=== PATIENT | male | born 1985 | race Caucasian/White ===

== ENCOUNTER 2018-01-21 06:59 | Day surgery (SDC) | payer MEDICAID, OTHER ==
[~2018-01-21] VITALS: Ht 180.3 cm; Wt 117.9 kg
[2018-01-21] MEDS ORDERED: VITD1000 PO (08:14)
[2018-01-21] MEDS ORDERED: LIDOCAINE 2% 1000 MG/50 ML VIAL INJ ONE (08:32)
== END 2018-01-21 10:10 | disposition home or self-care (01) ==
LOC: MMU 06:59 → MDS 06:59
PROVIDERS: ATTEND Internal Medicine Gastroenterology
DX: R94.5 Abnormal results of liver function studies (principal); Z87.891 Personal history of nicotine dependence; E66.9 Obesity, unspecified; Z68.36 Body mass index [BMI] 36.0-36.9, adult; Z98.890 Other specified postprocedural states
CPT/HCPCS: 47000; 76942; J2001; Q0092